=== PATIENT | female | born 1945 | race Caucasian/White ===

== ENCOUNTER 2019-11-23 11:09 | Emergency (ER) | payer MEDICARE, OTHER ==
[2019-11-23 11:34] VITALS: BP 152/78; PULSE 90; TEMP 98.5; BMI 25.0
[2019-11-23] MEDS ORDERED: IBUPROFEN 400 MG TABLET (FP) PO ONE ×2 (11:55→11:59)
--- NOTE | 2019-11-23 12:00 | PDOC ---
History of Present Illness - General Chief Complaint: Respiratory Stated Complaint: FLU Time Seen by Provider: 11/23/19 11:18 History Source: Patient Exam Limitations: No Limitations - History of Present Illness Initial Comments: 11/23/19 11:56 74y F hx of htn, hl, presenst with complaint of body aches, cough for the past 2 days. Patient states her cough started yesterday associated with intermittent yellowish sputum, Also endorses malaise and body aches That started this morning. The patient denies any neeraj fevers, dyspnea exertion, chest pain, abdominal pain, nausea, vomiting, dysuria, diarrhea, leg swelling or tpain. . The patient's grandson was recently diagnosed with influenza last week (+test at doctors office). Patient has no other recent travel or known sick contacts. Is this a multiple visit Asthma Patient?: No Past History - Past Medical History Allergies/Adverse Reactions: Allergies Allergy/AdvReac Type Severity Reaction Status Date / Time No Known Allergies Allergy Verified 11/23/19 11:12 Home Medications: Ambulatory Orders Aspirin [Aspirin EC] 81 mg PO DAILY 11/23/19 Baclofen 10 mg PO HS 11/23/19 Bimatoprost [Lumigan] 1 drop OU DAILY 11/23/19 Calcium Carbonate/Vitamin D3 [Calcium 600 + D3 Softgel] 1 each PO DAILY Carbidopa/Levodopa [Carbidopa-Levodopa 25-100 Tab] 1 each PO TID 11/23/19 Dorzolamide HCl/Timolol Maleat [Cosopt Eye Drops] 10 ml OP HS 11/23/19 Ibuprofen 600 mg PO TID PRN 11/23/19 Losartan/Hydrochlorothiazide [Losartan-Hctz 100-25 mg Tab] 1 each PO DAILY 11/23 Magnesium Oxide [Magnesium] 400 mg PO DAILY 11/23/19 Omeprazole 20 mg PO DAILY 11/23/19 Oseltamivir Phosphate [Tamiflu -] 75 mg PO BID #10 capsule 11/23/19 Simvastatin 20 mg PO HS 11/23/19 COPD: No HTN: Yes Hypercholesterolemia: Yes Other medical history: PARKISONS, ARTHRITIS - Psycho Social/Smoking Cessation Hx Smoking History: Never smoked Have you smoked in the past 12 months: No Number of Cigarettes Smoked Daily: 0 Cigars Per Day: 0 Hx Alcohol Use: No Drug/Substance Use Hx: No Substance Use Type: None Review of Systems - Review of Systems Able to Perform ROS?: Yes Comments:: 11/23/19 11:57 Constitutional - +myalgias no reported Fever, Chills, HEENT: +mild sore throat no reported vision changes, Respiratory: + cough, no reported sob, hemoptysis Cardiac: no reported chest pain, palpitations, light headedness, leg swelling Abd/GI: no reported abd pain, nausea, vomiting, blood per rectum, melena, diarrhea : no reported dysuria, frequency, discharge Musculskelatal - no reported back pain, joint swelling skin - no reported bruising, erythema, rash neurological: no reported headache, numbness, focal weakness, tingling, ataxia, hematologic: no reported easy bruising, easy bleeding *Physical Exam - Vital Signs Last Vital Signs Temp Pulse Resp BP Pulse Ox 98.5 F 90 16 152/78 98 11/23/19 11:10 11/23/19 11:10 11/23/19 11:10 11/23/19 11:10 11/23/19 11:10 - Physical Exam 11/23/19 11:58 GENERAL: The patient is awake, alert, and fully oriented, Nontoxic - in no acute distress. HEAD: Normocephalic, atraumatic. EYES: extraocular movements intact, sclera anicteric, conjunctiva clear. ENT: Normal voice, Moist mucous membranes. NECK: Normal range of motion, supple LUNGS: Breath sounds equal, clear to auscultation bilaterally. No wheezes, no rhonchi, no rales. HEART: Regular rate and rhythm, normal S1 and S2 without murmur, rub or gallop. ABDOMEN: Soft, nontender, No guarding, no rebound. No CVA tenderness EXTREMITIES: Normal range of motion, no edema, No calf tenderness, negative Homans NEUROLOGICAL: No facial assymetry, Normal speech, Normal gait PSYCH: Normal mood, normal affect. SKIN: Warm, Dry, normal turgor, Medical Decision Making - Medical Decision Making 11/23/19 11:58 Suspect influenza, will treat with Tamiflu as the patient has close contacts and based on her age. Patient otherwise well-appearing, no distress, will discharge with supportive care Return precautions were discussed I discussed the physical exam findings, ancillary test results and final diagnoses with the patient. I answered all of the patient's questions. The patient was satisfied with the care received and felt comfortable with the discharge plan and treatment plan. The patient will call their primary care physician within 24 hours to arrange follow-up and will return to the Emergency Department with any new, persistent or worsening symptoms. Discharge - Discharge Information Problems reviewed: Yes Clinical Impression/Diagnosis: Flu-like symptoms Condition: Stable Disposition: HOME - Admission No - Additional Discharge Information Prescriptions: Oseltamivir Phosphate [Tamiflu -] 75 mg PO BID #10 capsule - Follow up/Referral Referrals: Char Soria MD [Primary Care Provider] - - Patient Discharge Instructions Patient Printed Discharge Instructions: DI for Viral Upper Respiratory Infection -- Adult, DI for Influenza -- Adult Additional Instructions: Return to the emergency department immediately with ANY new, persistent or worsening symptoms Chest pain, shortness of breath, nausea or vomiting or any other concerns. Take the medications as prescribed you can take Tylenol Motrin for any fevers or body aches. Make sure to stay well-hydrated You MUST call and follow up with your doctor in 4-5 days for further evaluation of your symptoms. Results were discussed with you. Please make sure your doctor reviews the results of your emergency evaluation. Your Emergency Department visit is not complete without a follow up with your doctor. Print Language: PAKISTANI - Post Discharge Activity
== END 2019-11-23 12:19 | disposition home or self-care (01) ==
LOC: FER 11:09 → SUPCPDRO 11:09 → FER 12:19
DX: J11.1 Influenza due to unidentified influenza virus with other respiratory manifestations (principal); I10 Essential (primary) hypertension; G20 Parkinson's disease
CPT/HCPCS: 99281-25

== ENCOUNTER 2021-07-04 08:49 | Emergency (ER) | payer OTHER ==
[2021-07-04 10:26] LABS: BASO % 0.6 % (0-2.0); EOS % 0.8 % (0-4.5); HEMATOCRIT 40.8 % (32.4-45.2); HEMOGLOBIN 13.3 GM/dl (10.7-15.3); LYMPH % 21.1 % (8-40); MCH 27.7 pg (25.7-33.7); MCHC 32.6 g/dl (32.0-36.0); MEAN PLT VOLUME 7.7 fl (7.5-11.1); MONO % 4.7 % (3.8-10.2); NEUT % 72.8 % (42.8-82.8); PLATELET COUNT 325 10^3/uL (134-434); RDW 13.4 % (11.6-15.6); WHITE BLOOD COUNT 8.1 K/mm3 (4.0-10.8)
[2021-07-04 10:38] LABS: ALBUMIN 4.4 g/dl (3.4-5.0); ALK PHOS 107 U/L (45-117); ANION GAP 12 MMOL/L (8-16); BILIRUBIN,TOTAL 0.6 mg/dl (0.2-1); CALCIUM 9.5 mg/dl (8.5-10); CHLORIDE 100 mmol/L (98-107); CO2 26 mmol/L (21-32); CREATININE 0.8 mg/dl (0.55-1.3); GLUCOSE,RANDOM 109 mg/dl (74-106); SGOT/AST 25 U/L (15-37); SGPT/ALT 18 U/L (13-61); SODIUM 138 mmol/L (136-145); TOT PROT 8.5 g/dl (6.4-8.2)
[2021-07-04] MEDS ORDERED: ASPIRIN 325 MG ENTERIC COATED TABLET (FP) PO ONE (12:03)
[2021-07-04 12:39] LABS: EPITHELIAL CELLS FEW /hpf
[2021-07-04] MEDS ORDERED: SODIUM CHLORIDE 1,000 ML IV SCH (12:45)
[2021-07-04] MEDS ORDERED: KCL 10 MEQ IVPB 30 MEQ/300 ML INFUS.BAG IVPB ONE (13:21)
[2021-07-04] MEDS: KCL 10 MEQ IVPB 10 MEQ/100 ML INFUS.BAG IVPB SCH ×3 (13:27→15:44)
[2021-07-04] MEDS: CARBIDOPA/LEVODOPA 25/100 TABLET (FP) PO SCH (13:53)
[2021-07-04 14:47] LABS: CHLORIDE 105 mmol/L (98-107); SODIUM 141 mmol/L (136-145)
[2021-07-04 14:49] LABS: CALCIUM 9.2 mg/dL (8.5-10.1)
[2021-07-04 14:50] LABS: ALBUMIN 3.9 g/dl (3.4-5.0); ANION GAP 7 MMOL/L (8-16); BLOOD UREA NITROGEN 13.3 mg/dL (7-18); CO2 30 mmol/L (21-32); GLUCOSE,RANDOM 88 mg/dL (74-106)
[2021-07-04 14:52] LABS: SGPT/ALT 20 U/L (13-61)
[2021-07-04 14:53] LABS: CHOLESTEROL 231 mg/dL (50-200); CREATININE 0.8 mg/dL (0.55-1.3); SGOT/AST 25 U/L (15-37)
[2021-07-04 14:54] LABS: BILIRUBIN,TOTAL 0.5 mg/dL (0.2-1); LDL CHOLESTEROL (ONLY SJRH) 137 mg/dL (5-100); TOT PROT 8.6 g/dl (6.4-8.2); TRIGLYCERIDES 116 mg/dL (0-150)
[2021-07-04 14:55] LABS: ALK PHOS 125 U/L (45-117); HDL CHOLESTEROL 64 mg/dL (40-60)
[2021-07-04 17:50] VITALS: BMI 23.8
[2021-07-04] MEDS: ATORVASTATIN CA 10 MG TABLET (FP) PO SCH (21:16)
[2021-07-04] MEDS: GABAPENTIN 300 MG CAPSULE PO SCH (21:16)
[2021-07-04] MEDS: HEPARIN NA (PORCINE) 5,000 UNITS/ML 1ML VIAL SQ SCH (21:16)
[2021-07-04] MEDS: TRIHEXYPHENIDYL HCL 2 MG TABLET PO SCH (21:21)
[2021-07-05] MEDS: HEPARIN NA (PORCINE) 5,000 UNITS/ML 1ML VIAL SQ SCH ×3 (06:26→21:27)
[2021-07-05 08:27] LABS: EOS % 2.2 % (0-4.5); HEMATOCRIT 36.3 % (32.4-45.2); HEMOGLOBIN 11.9 GM/dl (10.7-15.3); LYMPH % 34.3 % (8-40); MCH 27.9 pg (25.7-33.7); MCHC 32.8 g/dl (32.0-36.0); MEAN CELL VOLUME 85.1 fl (80-96); MEAN PLT VOLUME 7.5 fl (7.5-11.1); MONO % 5.6 % (3.8-10.2); NEUT % 56.9 % (42.8-82.8); PLATELET COUNT 264 10^3/uL (134-434); RBC 4.27 M/mm3 (3.60-5.2); RDW 13.1 % (11.6-15.6); WHITE BLOOD COUNT 7.4 K/mm3 (4.0-10.8)
[2021-07-05 08:31] LABS: ALBUMIN 3.4 g/dl (3.4-5.0); BILIRUBIN,TOTAL 0.6 mg/dl (0.2-1); CALCIUM 8.7 mg/dl (8.5-10); CREATININE 0.8 mg/dl (0.55-1.3); TOT PROT 6.7 g/dl (6.4-8.2)
[2021-07-05] MEDS ORDERED: PT OWN MED DRAWER 7, Y5N ONE (09:18)
[2021-07-05] MEDS: ASPIRIN COATED 81 MG TABLET.EC PO SCH (09:37)
[2021-07-05] MEDS: CARBIDOPA/LEVODOPA 25/100 TABLET (FP) PO SCH (09:37)
[2021-07-05] MEDS: TRIHEXYPHENIDYL HCL 2 MG TABLET PO SCH (09:37)
[2021-07-05] MEDS ORDERED: LOSARTAN 50MG/HCTZ 12.5MG 1 TAB PO SCH (10:00)
[2021-07-05] MEDS ORDERED: PATIENT'S OWN MEDICATION (NON-FORMULARY) (Losartan/Hydrochlorothiazide [Losartan-Hctz 100- PO SCH (10:00)
[2021-07-05] MEDS: KCL 10 MEQ IVPB 10 MEQ/100 ML INFUS.BAG IVPB SCH ×3 (10:15→14:08)
[2021-07-05] MEDS: ATORVASTATIN CA 10 MG TABLET (FP) PO SCH (21:28)
[2021-07-05] MEDS: GABAPENTIN 300 MG CAPSULE PO SCH (21:28)
[2021-07-05] MEDS ORDERED: MELATONIN 1 MG TABLET PO PRN (23:02)
[2021-07-06] MEDS: HEPARIN NA (PORCINE) 5,000 UNITS/ML 1ML VIAL SQ SCH ×2 (05:31→16:47)
[2021-07-06 07:47] LABS: BASO % 1.2 % (0-2.0); HEMATOCRIT 36.8 % (32.4-45.2); HEMOGLOBIN 12.2 GM/dl (10.7-15.3); LYMPH % 34.5 % (8-40); MCH 28.5 pg (25.7-33.7); MEAN CELL VOLUME 86.2 fl (80-96); MEAN PLT VOLUME 7.6 fl (7.5-11.1); MONO % 5.5 % (3.8-10.2); NEUT % 55.8 % (42.8-82.8); PLATELET COUNT 255 10^3/uL (134-434); RBC 4.27 M/mm3 (3.60-5.2); RDW 13.3 % (11.6-15.6); WHITE BLOOD COUNT 6.9 K/mm3 (4.0-10.8)
[2021-07-06 07:52] LABS: ALBUMIN 3.4 g/dl (3.4-5.0); BILIRUBIN,TOTAL 0.4 mg/dl (0.2-1); CALCIUM 8.9 mg/dl (8.5-10); CREATININE 0.9 mg/dl (0.55-1.3); MAGNESIUM 1.5 mg/dL (1.8-2.4); TOT PROT 6.6 g/dl (6.4-8.2)
[2021-07-06] MEDS ORDERED: PT OWN MED DRAWER 7, Y5N ONE (09:04)
[2021-07-06] MEDS: ASPIRIN COATED 81 MG TABLET.EC PO SCH (09:31)
[2021-07-06] MEDS: CARBIDOPA/LEVODOPA 25/100 TABLET (FP) PO SCH (09:31)
[2021-07-06] MEDS ORDERED: MAGNESIUM SULF 50% (8.12 MEQ/2 ML-1 GM VIAL) IVPB ONE (09:49)
[2021-07-06] MEDS ORDERED: POTASSIUM CHLORIDE TABS 20 MEQ TABLET.ER (FP) PO ONE (10:00)
[2021-07-06] MEDS ORDERED: LOSARTAN POTASSIUM 50 MG TABLET PO SCH (10:00)
[2021-07-06] MEDS ORDERED: AMANTADINE HCL 100 MG TABLET PO SCH (10:00)
[2021-07-06] MEDS ORDERED: MAGNESIUM SULFATE IN WATER 2 GM/50 ML IVPB IVPB ONE (10:00)
[2021-07-06 14:15] VITALS: BP 115/50; PULSE 61; TEMP 98.6
[2021-07-06 15:27] LABS: CALCIUM 8.9 mg/dl (8.5-10); CREATININE 0.9 mg/dl (0.55-1.3)
== END 2021-07-06 17:08 | disposition home or self-care (01) ==
LOC: FER 08:49 → FM/S 14:00
PROVIDERS: ADMIT Internal Medicine; ATTEND Nurse Practitioner Acute Care
PROC: 3E033GC Introduction of Other Therapeutic Substance into Peripheral Vein, Percutaneous Approach (ICD-10-PCS; principal; 2021-07-04)
DX: R53.1 Weakness (principal); R29.898 Other symptoms and signs involving the musculoskeletal system; E87.6 Hypokalemia; I10 Essential (primary) hypertension; E78.5 Hyperlipidemia, unspecified; G20 Parkinson's disease; F03.90 Unspecified dementia, unspecified severity, without behavioral disturbance, psychotic disturbance, mood disturbance, and anxiety; I25.10 Atherosclerotic heart disease of native coronary artery without angina pectoris; M19.90 Unspecified osteoarthritis, unspecified site
CPT/HCPCS: 36415; 70450-TC; 70551-TC; 71045-TC-FY; 80048; 80053; 80061; 81003; 81015; 82550; 82553; 83090; 83735; 83874; 84484; 85025; 86038; 87086; 87186; 93005; 93880-TC; 96365; 97116-GP; 97162-GP; 99285-25; C9803; G0378; J1644; U0003; U0005

== ENCOUNTER 2021-11-26 10:42 | Emergency (ER) | payer OTHER ==
[2021-11-26 10:47] VITALS: BP 110/63; PULSE 66; TEMP 98.6; BMI 24.4
== END 2021-11-26 12:48 | disposition home or self-care (01) ==
LOC: FER 10:42
DX: H53.8 Other visual disturbances (principal)
CPT/HCPCS: 70450-TC; 99284-25

== ENCOUNTER 2022-09-24 21:00 | Observation (INO) | payer OTHER ==
[2022-09-24 21:56] VITALS: BMI 21.6
[2022-09-24 22:27] LABS: RBC 4.17 10^6/uL (3.60-5.2); WHITE BLOOD COUNT 9.1 10^3/uL (4.0-10.8)
[2022-09-24 22:28] LABS: HEMATOCRIT 35.7 % (32.4-45.2); MCH 28.9 pg (25.7-33.7); MCHC 33.7 g/dl (32.0-36.0); MEAN CELL VOLUME 85.7 fl (80-96); MEAN PLT VOLUME 7.3 fl (7.5-11.1); PLATELET COUNT 243.3 10^3/uL (134-434); RDW 14.6 % (11.6-15.6)
[2022-09-24 22:38] LABS: BILIRUBIN,TOTAL 0.6 mg/dl (0.2-1); CALCIUM 9.3 mg/dl (8.5-10); CREATININE 0.8 mg/dl (0.55-1.3); TOT PROT 7.7 g/dl (6.4-8.2)
[2022-09-24 22:54] LABS: EPITHELIAL CELLS FEW /hpf
[2022-09-25] MEDS: LOSARTAN 50MG/HCTZ 12.5MG 1 TAB PO SCH (09:56)
[2022-09-25] MEDS: CEFTRIAXONE 1 GM in DEXTROSE 5%-WATER - 50 ML IVPB SCH (09:56)
[2022-09-25] MEDS: HEPARIN NA (PORCINE) 5,000 UNITS/ML 1ML VIAL SQ SCH ×2 (14:55→21:23)
[2022-09-25 18:09] VITALS: RESP 18
[2022-09-26] MEDS: HEPARIN NA (PORCINE) 5,000 UNITS/ML 1ML VIAL SQ SCH (06:00)
[2022-09-26 06:48] VITALS: BP 137/75; PULSE 82; TEMP 97.4
[2022-09-26 08:14] LABS: BILIRUBIN,TOTAL 0.9 mg/dl (0.2-1); CALCIUM 9.4 mg/dl (8.5-10); CREATININE 0.9 mg/dl (0.55-1.3); TOT PROT 7.6 g/dl (6.4-8.2)
[2022-09-26] MEDS: CEFTRIAXONE 1 GM in DEXTROSE 5%-WATER - 50 ML IVPB SCH (09:26)
[2022-09-26] MEDS: LOSARTAN 50MG/HCTZ 12.5MG 1 TAB PO SCH (09:26)
[2022-09-26 10:22] LABS: HEMATOCRIT 37.5 % (32.4-45.2); HEMOGLOBIN 12.4 GM/dL (10.7-15.3); MCH 27.8 pg (25.7-33.7); MEAN CELL VOLUME 84.3 fl (80-96); MEAN PLT VOLUME 7.8 fl (7.5-11.1); PLATELET COUNT 284 10^3/uL (134-434); RBC 4.46 M/mm3 (3.60-5.2); RDW 14.4 % (11.6-15.6); WHITE BLOOD COUNT 7.9 K/mm3 (4.0-10.0)
[2022-09-26 10:45] LABS: PLATELET ESTIMATE ADEQUATE
== END 2022-09-26 14:04 | disposition home or self-care (01) ==
LOC: FER 21:00 → FM/S 09-25 00:28
PROVIDERS: ADMIT Internal Medicine
PROC: 3E03329 Introduction of Other Anti-infective into Peripheral Vein, Percutaneous Approach (ICD-10-PCS; principal; 2022-09-25)
PROC: 3E023GC Introduction of Other Therapeutic Substance into Muscle, Percutaneous Approach (ICD-10-PCS; 2022-09-25)
DX: I13.10 Hypertensive heart and chronic kidney disease without heart failure, with stage 1 through stage 4 chronic kidney disease, or unspecified chronic kidney disease (principal); N18.9 Chronic kidney disease, unspecified; R41.82 Altered mental status, unspecified; E78.00 Pure hypercholesterolemia, unspecified; G20 Parkinson's disease; F02.82 Dementia in other diseases classified elsewhere, unspecified severity, with psychotic disturbance; N39.0 Urinary tract infection, site not specified; K21.9 Gastro-esophageal reflux disease without esophagitis
CPT/HCPCS: 0241U-QW; 36415; 70450-TC; 71045-TC-FY; 80053; 81003; 81015; 82550; 82962; 84484; 85027; 87086; 93005; 96365; 96372; 99285-25; G0378; J1644

== ENCOUNTER 2023-04-09 12:13 | Observation (INO) | payer OTHER ==
[2023-04-09 13:07] VITALS: BMI 21.9
[2023-04-09] MEDS ORDERED: ACETAMINOPHEN 1000 MG/100 ML BAG IVPB ONE (13:20)
[2023-04-09] MEDS ORDERED: SODIUM CHLORIDE 0.9% 1000 ML INFUS.BAG IV ONE (13:20)
[2023-04-09] MEDS ORDERED: ACETAMINOPHEN INJECTION 100 ML IVPB ONE (15:04)
[2023-04-09 15:26] LABS: ALBUMIN 3.6 g/dl (3.4-5.0); BILIRUBIN,TOTAL 0.4 mg/dl (0.2-1); CALCIUM 9.7 mg/dl (8.5-10); CREATININE 0.7 mg/dl (0.55-1.3); HEMATOCRIT 35.5 % (32.4-45.2); HEMOGLOBIN 12.2 G/dL (10.7-15.3); INR 1.07 (0.83-1.09); MCH 29.8 pg (25.7-33.7); MCHC 34.4 g/dl (32.0-36.0); MEAN CELL VOLUME 86.5 fl (80-96); MEAN PLT VOLUME 7.7 fl (7.5-11.1); PLATELET COUNT 205.3 10^3/uL (134-434); POTASSIUM 3.8 mmol/L (3.5-5.1); PROTHROMBIN TIME (PATIENT) 12.4 SEC (9.7-13.0); RDW 13.8 % (11.6-15.6); TOT PROT 7.5 g/dl (6.4-8.2); WHITE BLOOD COUNT 6.5 10^3/uL (4.0-10.8)
[2023-04-09 15:39] LABS: EPITHELIAL CELLS RARE /hpf
[2023-04-09] MEDS ORDERED: guaiFENesin/D-METHORPHAN HB 10 ML UNIT-DOSE CUPS PO PRN (19:59)
[2023-04-09] MEDS ORDERED: PHENOL 177 ML SPRAY BOTTLE MM PRN (19:59)
[2023-04-09] MEDS ORDERED: BENZOCAINE/MENTHOL (CHLORASEPTIC ) LOZENGE MM PRN (19:59)
[2023-04-09] MEDS ORDERED: ACETAMINOPHEN 1000 MG/100 ML BAG IVPB PRN (20:10)
[2023-04-09 21:34] LABS: MAGNESIUM 1.7 mg/dL (1.8-2.4); PHOSPHOROUS 3.3 mg/dl (2.5-4.9)
[2023-04-09] MEDS ORDERED: DOCUSATE SODIUM 100 MG CAPSULE (FP) PO PRN (21:54)
[2023-04-09] MEDS ORDERED: DEXTROSE 5%-NORMAL SALINE 1,000 ML IV SCH (22:00)
[2023-04-10] MEDS: CARBIDOPA/LEVODOPA 25/100 TABLET (FP) PO SCH ×2 (06:25→15:06)
[2023-04-10] MEDS ORDERED: BENZOCAINE/MENTH/CETYLPYRD CL 1 EACH LOZENGE MM PRN (07:21)
[2023-04-10 08:14] LABS: INR 1.08 (0.83-1.09); PROTHROMBIN TIME (PATIENT) 12.5 SEC (9.7-13.0)
[2023-04-10 08:17] LABS: ACTIVATED PTT 30.5 SECONDS (25.2-36.5); CALCIUM 8.8 mg/dl (8.5-10); CREATININE 0.7 mg/dl (0.55-1.3)
[2023-04-10 08:53] LABS: MAGNESIUM 1.7 mg/dL (1.8-2.4); PHOSPHOROUS 2.9 mg/dl (2.5-4.9)
[2023-04-10 08:55] LABS: HEMATOCRIT 33.7 % (32.4-45.2); HEMOGLOBIN 11.2 GM/dL (10.7-15.3); MCH 28.1 pg (25.7-33.7); MCHC 33.2 g/dl (32.0-36.0); MEAN CELL VOLUME 84.7 fl (80-96); MEAN PLT VOLUME 7.6 fl (7.5-11.1); PLATELET COUNT 226 10^3/uL (134-434); RBC 3.97 M/mm3 (3.60-5.2); RDW 13.6 % (11.6-15.6); WHITE BLOOD COUNT 4.4 K/mm3 (4.0-10.0)
[2023-04-10] MEDS ORDERED: POTASSIUM CHLORIDE ORAL LIQUID 20 MEQ/15 ML PO ONE (09:00)
[2023-04-10] MEDS ORDERED: MAGNESIUM SULF 50% (8.12 MEQ/2 ML-1 GM VIAL) IVPB ONE (09:16)
[2023-04-10] MEDS ORDERED: MAGNESIUM SULFATE IN WATER 2 GM/50 ML IVPB IVPB ONE (09:45)
[2023-04-10] MEDS ORDERED: HEPARIN NA (PORCINE) 5,000 UNITS/ML 1ML VIAL SQ SCH (10:00)
[2023-04-10] MEDS ORDERED: TRIHEXYPHENIDYL HCL 2 MG TABLET PO SCH (10:00)
[2023-04-10] MEDS ORDERED: LOSARTAN 50MG/HCTZ 12.5MG 1 TAB PO SCH (10:00)
[2023-04-10] MEDS ORDERED: guaiFENesin/D-METHORPHAN HB 10 ML UNIT-DOSE CUPS PO SCH (13:45)
[2023-04-10 14:18] VITALS: BP 142/72; PULSE 89; RESP 18; TEMP 98.8
[2023-04-10] MEDS ORDERED: ACETAMINOPHEN 325 MG TABLET (FP) PO PRN (21:54)
[2023-04-10] MEDS ORDERED: ATORVASTATIN CA 10 MG TABLET (FP) PO SCH (22:00)
[2023-04-10] MEDS ORDERED: LATANOPROST 0.005% OPHTH SOLN 2.5ML BOTTLE OU SCH (22:00)
== END 2023-04-10 18:41 | disposition home or self-care (01) ==
LOC: FER 12:13 → FM/S 16:56
PROVIDERS: ADMIT Internal Medicine; ATTEND Internal Medicine
PROC: 3E033NZ Introduction of Analgesics, Hypnotics, Sedatives into Peripheral Vein, Percutaneous Approach (ICD-10-PCS; principal; 2023-04-09)
PROC: 3E033GC Introduction of Other Therapeutic Substance into Peripheral Vein, Percutaneous Approach (ICD-10-PCS; 2023-04-09)
PROC: 3E023GC Introduction of Other Therapeutic Substance into Muscle, Percutaneous Approach (ICD-10-PCS; 2023-04-09)
PROC: 3E033GC Introduction of Other Therapeutic Substance into Peripheral Vein, Percutaneous Approach (ICD-10-PCS; 2023-04-09)
PROC: 3E0337Z Introduction of Electrolytic and Water Balance Substance into Peripheral Vein, Percutaneous Approach (ICD-10-PCS; 2023-04-09)
DX: U07.1 COVID-19 (principal); R05.9 Cough, unspecified; G31.83 Neurocognitive disorder with Lewy bodies; F02.80 Dementia in other diseases classified elsewhere, unspecified severity, without behavioral disturbance, psychotic disturbance, mood disturbance, and anxiety; G20 Parkinson's disease
CPT/HCPCS: 0241U-QW; 36415; 70450-TC; 71045-TC-FY; 73502-TC-RT-FY; 74178-TC; 80048; 80053; 81003; 81015; 82550; 82553; 82728; 83615; 83735; 84100; 84484; 85027; 85610; 85730; 86140; 87651; 93005; 93010; 96365; 96367; 96372; 96375; 97116-GP; 97162-GP; 99285-25; G0378; J1644; Q9967